=== PATIENT | female | born 1955 | race Caucasian/White ===

== ENCOUNTER 2017-01-17 04:49 | Inpatient (IN) | payer BC ==
[~2017-01-17] VITALS: Ht 167.6 cm; Wt 73.9 kg
[~2017-01-17 04:49] MED LIST: ATIVAN0.5 MG PO; AUGMENTIN 500-1 EACH PO; HYDROCODON-ACE1 EAC4 PO; IBUPROFEN400 MG PO; PHENERGAN25 M1 PO
--- NOTE | 2017-01-19 10:22 | NUR ---
0815 PATIENT HAS SCD'S TO BILATERAL LOWER EXTREMETIES
--- NOTE | 2017-01-19 13:54 | NUR ---
1200 PATIENT OFF FLOOR TO RADIOLOGY [facility]IA [facility]OS[facility] BED WITH STAFF 1249 PATIENT BACK TO FLOOR WITH A NEW IV 18 R HAND PER RADIOLOGY
--- NOTE | 2017-01-23 12:48 | NUR ---
1200 - PATIENT C/O GAS. SIMETHICONE 80 MG PO ADMINISTERED.
== END 2017-01-23 12:15 | disposition home or self-care (01) | DRG 339 ==
LOC: ER 04:49 → MED 07:22 → ER 07:22 → MED 07:22 → ER 01-19 15:05 → MED 01-19 15:05
PROVIDERS: ADMIT Surgery
PROC: 0DTJ4ZZ Resection of Appendix, Percutaneous Endoscopic Approach (ICD-10-PCS; principal; 2017-01-17)
PROC: 02HV33Z Insertion of Infusion Device into Superior Vena Cava, Percutaneous Approach (ICD-10-PCS; 2017-01-21)
DX: K35.2 Acute appendicitis with generalized peritonitis (principal); J98.11 Atelectasis; Z86.011 Personal history of benign neoplasm of the brain; B96.5 Pseudomonas (aeruginosa) (mallei) (pseudomallei) as the cause of diseases classified elsewhere; B96.20 Unspecified Escherichia coli [E. coli] as the cause of diseases classified elsewhere
CPT/HCPCS: 36415; 74020; 87507; 96361; 96374; 96375; C1751; J1644; J1650; J1885; J2550; J2704; J2765; Q9967